=== PATIENT | female | born 2000 | race Caucasian/White ===

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

== ENCOUNTER → 2021-07-23 | Outpatient (REF) | payer OTHER ==
[~2021-07-23] MED LIST changes: +NORE1TAB73
== END ==
LOC: M WUC 11:33
PROVIDERS: ATTEND Physician Assistant
DX: R30.0 Dysuria (principal)

== ENCOUNTER 2021-08-19 17:16 | Emergency (ER) | payer MEDICAID, OTHER ==
[~2021-08-19] VITALS: Ht 152.4 cm; Wt 46.0 kg
[~2021-08-19 17:16] MED LIST changes: -NORE1TAB73
[2021-08-19] MEDS ORDERED: NORE1TAB73 (17:29)
[2021-08-19 18:33] LABS: BASO % 0.4 % (0.0-1.0); EOS % 0.3 % (0.0-3.0); LYMPH # 1.4 10^3/uL (1.5-5.0); LYMPH % 18.9 % (24.0-44.0); MEAN CORPUSCULAR HGB CONC 34.1 g/dl (32.0-36.5); MEAN CORPUSCULAR VOLUME 87.8 fl (80.0-96.0); MONO # 0.5 10^3/uL (0.0-0.8); NEUTROPHILS # 5.6 10^3/uL (1.5-8.5); NEUTROPHILS % 73.1 % (36.0-66.0); PLATELET COUNT, AUTOMATED 209 10^3/uL (150-450); RED BLOOD COUNT 4.67 10^6/uL (4.00-5.40); WHITE BLOOD COUNT 7.6 10^3/uL (4.0-10.0)
[2021-08-19 18:58] LABS: ALBUMIN 3.9 GM/DL (3.2-5.2); ALT/SGPT 65 U/L (12-78); BILIRUBIN,DIRECT 0.1 MG/DL (0.0-0.2); BILIRUBIN,TOTAL 0.1 MG/DL (0.2-1.0); BLOOD UREA NITROGEN 12 MG/DL (7-18); CALCIUM LEVEL 8.9 MG/DL (8.5-10.1); CARBON DIOXIDE LEVEL 27 MEQ/L (21-32); CHLORIDE LEVEL 105 MEQ/L (98-107); CREATININE FOR GFR 0.57 MG/DL (0.55-1.30); GLUCOSE, FASTING 87 MG/DL (70-100); POTASSIUM SERUM 4.3 MEQ/L (3.5-5.1); SODIUM LEVEL 137 MEQ/L (136-145); TOTAL PROTEIN 7.5 GM/DL (6.4-8.2)
[2021-08-19 18:59] LABS: HCG, SERUM QUALITATIVE NEGATIVE (NEGATIVE)
[2021-08-19 22:49] VITALS: BP 124/63
== END 2021-08-19 22:54 | disposition home or self-care (01) ==
LOC: M ED 17:16
DX: N83.201 Unspecified ovarian cyst, right side (principal)

== ENCOUNTER 2022-01-28 16:38 | Emergency (ER) | payer BC, MEDICAID ==
[~2022-01-28] VITALS: Ht 152.4 cm; Wt 48.9 kg
[~2022-01-28 16:38] MED LIST changes: +NORE1TAB73
[2022-01-28] MEDS ORDERED: COLA100C5 PO (16:47)
[2022-01-28] MEDS ORDERED: MOM 30ML SUSPENSION UDC PO ONE (17:50)
[2022-01-28 18:03] LABS: BASO % 0.3 % (0.0-1.0); EOS # 0.1 10^3/uL (0.0-0.5); HEMATOCRIT 38.9 % (36.0-47.0); HEMOGLOBIN 13.4 g/dl (12.0-15.5); LYMPH # 3.6 10^3/uL (1.5-5.0); LYMPH % 28.9 % (24.0-44.0); MEAN CORPUSCULAR HEMOGLOBIN 31.2 pg (27.0-33.0); MEAN CORPUSCULAR HGB CONC 34.4 g/dl (32.0-36.5); MEAN CORPUSCULAR VOLUME 90.5 fl (80.0-96.0); MONO % 7.6 % (2.0-8.0); NEUTROPHILS # 7.8 10^3/uL (1.5-8.5); NEUTROPHILS % 61.9 % (36.0-66.0); PLATELET COUNT, AUTOMATED 313 10^3/uL (150-450); WHITE BLOOD COUNT 12.5 10^3/uL (4.0-10.0)
[2022-01-28 18:32] LABS: BILIRUBIN,DIRECT 0.2 MG/DL (0.0-0.2); BILIRUBIN,TOTAL 0.2 MG/DL (0.2-1.0); TOTAL PROTEIN 7.6 GM/DL (6.4-8.2)
[2022-01-28] MEDS ORDERED: FLEET OIL RETENTION ENEMA PR PRN (18:40)
[2022-01-28] MEDS ORDERED: MILKSUS3 PO (19:37)
[2022-01-28 19:48] VITALS: BP 105/64
== END 2022-01-28 19:56 | disposition home or self-care (01) ==
LOC: M ED 16:38
DX: O99.611 Diseases of the digestive system complicating pregnancy, first trimester (principal); K59.00 Constipation, unspecified; Z3A.09 9 weeks gestation of pregnancy

== ENCOUNTER 2022-04-19 14:41 | Outpatient (CLI) | payer BC ==
[~2022-04-19] VITALS: Ht 152.4 cm; Wt 50.8 kg
[~2022-04-19 14:41] MED LIST changes: +COLA100C5 PO; +MILKSUS3 PO
[2022-04-19] MEDS ORDERED: PRENTAB9 PO (14:58)
[2022-04-19] MEDS ORDERED: ONDA4TAB6 PO (14:58)
[2022-04-19 15:03] VITALS: BP 112/70
[2022-04-19] MEDS ORDERED: HOME MED LIST COMPLETE! XX SCH (15:10)
== END 2022-04-19 15:43 | disposition home or self-care (01) ==
LOC: M LDO 14:41
PROVIDERS: ATTEND Specialist
DX: O26.852 Spotting complicating pregnancy, second trimester (principal); Z3A.22 22 weeks gestation of pregnancy
CPT/HCPCS: 59025; 76815; G0463

== ENCOUNTER → 2022-05-15 | Outpatient (CLI) | payer BC, MEDICAID ==
[~2022-05-15] MED LIST changes: +ONDA4TAB6 PO; +PRENTAB9 PO
== END ==
LOC: M WHC 07:41
PROVIDERS: ATTEND Obstetrics & Gynecology Obstetrics
DX: Z34.82 Encounter for supervision of other normal pregnancy, second trimester (principal); Z3A.23 23 weeks gestation of pregnancy

== ENCOUNTER 2023-02-05 04:23 | Emergency (ER) | payer OTHER, BC ==
[~2023-02-05] VITALS: Ht 152.4 cm; Wt 50.9 kg
[2023-02-05] MEDS ORDERED: HAIL1TAB PO (04:28)
[2023-02-05 08:57] VITALS: BP 116/72; TEMP 98.1; O2SAT 100
== END 2023-02-05 08:58 | disposition home or self-care (01) ==
LOC: M ED 04:23
DX: S63.501A Unspecified sprain of right wrist, initial encounter (principal); X58.XXXA Exposure to other specified factors, initial encounter; Y99.0 Civilian activity done for income or pay; Z88.8 Allergy status to other drugs, medicaments and biological substances

== ENCOUNTER → 2023-03-24 | Outpatient (REF) ==
[~2023-03-24] MED LIST changes: +HAIL1TAB PO
== END ==
LOC: M EMP 10:05
PROVIDERS: ATTEND Family Medicine
DX: Z11.52 Encounter for screening for COVID-19 (principal)

== ENCOUNTER → 2023-04-14 | Outpatient (REF) | payer OTHER, BC | LOC: M LAB REF 16:21 | PROVIDERS: ATTEND Physician Assistant | DX: R30.0 Dysuria (principal) ==

== ENCOUNTER → 2023-04-20 | Outpatient (REF) | LOC: M EMP 11:47 | PROVIDERS: ATTEND Family Medicine | DX: Z11.52 Encounter for screening for COVID-19 (principal) ==

== ENCOUNTER 2023-06-07 05:11 | Emergency (ER) | payer BC, OTHER ==
[2023-06-07] MEDS ORDERED: NS 1,000 ML IV ONE (05:25)
[2023-06-07] MEDS ORDERED: ACETAMINOPHEN *IV* 500 MG in IV 1 EA IV ONE (05:25)
[2023-06-07 05:39] LABS: BASO # 0.1 10^3/uL (0.0-0.2); BASO % 0.5 % (0.0-1.0); EOS # 0.2 10^3/uL (0.0-0.5); EOS % 1.5 % (0.0-3.0); HEMOGLOBIN 12.2 g/dl (12.0-15.5); LYMPH # 4.8 10^3/uL (1.5-5.0); LYMPH % 36.3 % (24.0-44.0); MEAN CORPUSCULAR HGB CONC 34.9 g/dl (32.0-36.5); MEAN CORPUSCULAR VOLUME 89.1 fl (80.0-96.0); MONO # 1.1 10^3/uL (0.0-0.8); MONO % 8.4 % (2.0-8.0); NEUTROPHILS % 52.8 % (36.0-66.0); PLATELET COUNT, AUTOMATED 314 10^3/uL (150-450); RED BLOOD COUNT 3.93 10^6/uL (4.00-5.40); WHITE BLOOD COUNT 13.3 10^3/uL (4.0-10.0)
[2023-06-07 06:07] LABS: ALBUMIN 3.8 G/DL (3.2-5.2); ALKALINE PHOSPHATASE 58 U/L (46-116); ALT/SGPT 14 U/L (7.0-40); AST/SGOT 14 U/L (<34); BILIRUBIN,TOTAL 0.4 MG/DL (0.3-1.2); BLOOD UREA NITROGEN 9 MG/DL (9-23); CALCIUM LEVEL 8.8 MG/DL (8.5-10.1); CARBON DIOXIDE LEVEL 22 MMOL/L (20-31); CHLORIDE LEVEL 104 MMOL/L (98-107); CREATININE FOR GFR 0.43 MG/DL (0.55-1.30); GLOMERULAR FILTRATION RATE > 60.0 (>60); GLUCOSE, FASTING 96 MG/DL (60-100); POTASSIUM SERUM 3.9 MMOL/L (3.5-5.1); SODIUM LEVEL 138 MMOL/L (136-145); TOTAL PROTEIN 7.1 G/DL (5.7-8.2)
[2023-06-07] MEDS ORDERED: CEPH500C PO (08:59)
[2023-06-07] MEDS ORDERED: REGL10TA6 PO (09:26)
[2023-06-07 09:50] VITALS: BP 112/64; TEMP 98.3; O2SAT 99
== END 2023-06-07 09:54 | disposition home or self-care (01) ==
LOC: M ED 05:11
DX: O23.01 Infections of kidney in pregnancy, first trimester (principal); O46.91 Antepartum hemorrhage, unspecified, first trimester; F41.9 Anxiety disorder, unspecified; Z88.1 Allergy status to other antibiotic agents; Z79.891 Long term (current) use of opiate analgesic; Z79.899 Other long term (current) drug therapy
CPT/HCPCS: 76705; 76775; 76801; 80053; 81001; 83735; 85025; 93005; 96361; 96365; 96366; 99284; J0131

== ENCOUNTER 2023-10-02 07:27 | Outpatient (CLI) | payer BC ==
[~2023-10-02] VITALS: Ht 152.4 cm; Wt 56.2 kg
[~2023-10-02 07:27] MED LIST changes: +CEPH500C PO; +REGL10TA6 PO
== END 2023-10-02 10:15 | disposition home or self-care (01) ==
LOC: M LDO 07:27
PROVIDERS: ATTEND Obstetrics & Gynecology
DX: O47.03 False labor before 37 completed weeks of gestation, third trimester (principal); Z3A.28 28 weeks gestation of pregnancy
CPT/HCPCS: 59025; G0463

== ENCOUNTER 2024-01-24 00:12 | Emergency (ER) | payer BC ==
[~2024-01-24] VITALS: Ht 152.4 cm; Wt 55.0 kg
[~2024-01-24 00:12] MED LIST changes: +ONDA-282 PO; -ONDA4TAB6 PO
[2024-01-24 00:13] VITALS: BP 91/55; TEMP 96.5; O2SAT 98
[2024-01-24] MEDS: NS 1,000 ML IV ONE (00:55)
[2024-01-24] MEDS ORDERED: ONDANSETRON 4MG 2ML VIAL As Ordered ONE (00:59)
[2024-01-24] MEDS: ONDANSETRON 4MG 2ML VIAL IV ONE (01:00)
[2024-01-24 01:05] LABS: VENOUS BASE EXCESS -6.1 (-2.0-2.0); VENOUS O2 SATURATION 97.2 % (60.0-80.0); VENOUS PARTIAL PRESSURE CO2 27.5 mmHg (38.0-50.0); VENOUS PARTIAL PRESSURE O2 98.1 mmHg (30.0-50.0); VENOUS PH 7.409 UNITS (7.330-7.430); VENOUS STANDARD HCO3 19.5 MMOL/L; VENOUS TOTAL CO2 17.8 MMOL/L (24.0-28.0)
[2024-01-24] MEDS: KETOROLAC 30 MG/ML 1ML VIAL IV ONE (01:10)
[2024-01-24 01:14] LABS: BASO # 0.1 10^3/uL (0.0-0.2); BASO % 0.7 % (0.0-1.0); EOS # 0.2 10^3/uL (0.0-0.5); EOS % 1.6 % (0.0-3.0); HEMATOCRIT 38.3 % (36.0-47.0); HEMOGLOBIN 12.5 g/dl (12.0-15.5); LYMPH # 7.4 10^3/uL (1.5-5.0); LYMPH % 52.4 % (24.0-44.0); MEAN CORPUSCULAR HGB CONC 32.6 g/dl (32.0-36.5); MEAN CORPUSCULAR VOLUME 85.9 fl (80.0-96.0); MONO # 0.9 10^3/uL (0.0-0.8); MONO % 6.1 % (2.0-8.0); NEUTROPHILS # 5.6 10^3/uL (1.5-8.5); PLATELET COUNT, AUTOMATED 355 10^3/uL (150-450); RED BLOOD COUNT 4.46 10^6/uL (4.00-5.40); WHITE BLOOD COUNT 14.2 10^3/uL (4.0-10.0)
[2024-01-24 01:35] LABS: ETHYL ALCOHOL (ETHANOL) 0.158 % (0.000-0.010)
[2024-01-24 01:36] LABS: SALICYLATE LEVEL < 3.0 MG/DL (<30)
[2024-01-24 01:37] LABS: ALBUMIN 4.2 G/DL (3.2-5.2); ALKALINE PHOSPHATASE 96 U/L (46-116); ALT/SGPT 27 U/L (7.0-40); AST/SGOT 27 U/L (<34); BILIRUBIN,DIRECT < 0.1 MG/DL (<0.4); BILIRUBIN,TOTAL 0.3 MG/DL (0.3-1.2); BLOOD UREA NITROGEN 8 MG/DL (9-23); CALCIUM LEVEL 9.9 MG/DL (8.5-10.1); CARBON DIOXIDE LEVEL 17 MMOL/L (20-31); CHLORIDE LEVEL 106 MMOL/L (98-107); CREATININE FOR GFR 0.58 MG/DL (0.55-1.30); GLOMERULAR FILTRATION RATE > 60.0 (>60); GLUCOSE, FASTING 139 MG/DL (60-100); POTASSIUM SERUM 3.2 MMOL/L (3.5-5.1); SODIUM LEVEL 138 MMOL/L (136-145); TOTAL PROTEIN 6.8 G/DL (5.7-8.2)
[2024-01-24 01:39] LABS: THYROID STIMULATING HORMONE 2.701 uIU/ML (0.55-4.78)
[2024-01-24 01:40] LABS: CPK CREATINE PHOSPHOKINASE 89 U/L (34-145)
[2024-01-24 01:46] LABS: HCG, SERUM QUALITATIVE NEGATIVE (NEGATIVE)
== END 2024-01-24 04:30 | disposition home or self-care (01) ==
LOC: M ED 00:12
DX: F10.129 Alcohol abuse with intoxication, unspecified (principal); Z88.8 Allergy status to other drugs, medicaments and biological substances
CPT/HCPCS: 80048; 80076; 80143; 82077; 82550; 82803; 84443; 84703; 85025; 93005; 93041; 94760; 96361; 96374; 96375; 99284; J1885; J2405

== ENCOUNTER 2024-04-12 23:55 | Emergency (ER) | payer BC ==
[~2024-04-12] VITALS: Ht 152.4 cm; Wt 52.0 kg
[2024-04-13] MEDS: NS 1,000 ML IV ONE (00:42)
[2024-04-13 00:46] LABS: BASO % 0.2 % (0.0-1.0); EOS # 0.3 10^3/uL (0.0-0.5); EOS % 6.2 % (0.0-3.0); HEMATOCRIT 38.4 % (36.0-47.0); LYMPH # 0.5 10^3/uL (1.5-5.0); LYMPH % 11.4 % (24.0-44.0); MEAN CORPUSCULAR HEMOGLOBIN 28.6 pg (27.0-33.0); MEAN CORPUSCULAR HGB CONC 33.9 g/dl (32.0-36.5); MEAN CORPUSCULAR VOLUME 84.6 fl (80.0-96.0); MONO # 0.4 10^3/uL (0.0-0.8); MONO % 8.7 % (2.0-8.0); NEUTROPHILS # 3.2 10^3/uL (1.5-8.5); NEUTROPHILS % 73.3 % (36.0-66.0); PLATELET COUNT, AUTOMATED 176 10^3/uL (150-450); RED BLOOD COUNT 4.54 10^6/uL (4.00-5.40); WHITE BLOOD COUNT 4.4 10^3/uL (4.0-10.0)
[2024-04-13 00:54] LABS: APPEARANCE, URINE CLOUDY (CLEAR); BACTERIA, URINE AUTO 1+ (NEGATIVE); BILIRUBIN, URINE AUTO NEGATIVE (NEGATIVE); BLOOD, URINE BLOOD 3+ (NEGATIVE); COLOR, URINE YELLOW (YELLOW); GLUCOSE, URINE (UA) AUTO NEGATIVE (NEGATIVE); KETONE, URINE AUTO 2+ mg/dL (NEGATIVE); LEUKOCYTE ESTERASE, URINE AUTO 2+ (NEGATIVE); MUCUS, URINE SMALL (NEGATIVE); NITRITE, URINE AUTO NEGATIVE (NEGATIVE); PROTEIN, URINE AUTO 1+ mg/dL (NEGATIVE); RBC, URINE AUTO 9 /HPF (0-3); SQUAMOUS EPITHELIAL CELL UR AU 20 /HPF (0-6); WBC, URINE AUTO 25 /HPF (0-3)
[2024-04-13 01:14] LABS: ALBUMIN 4.3 G/DL (3.2-5.2); ALKALINE PHOSPHATASE 87 U/L (46-116); ALT/SGPT 19 U/L (7.0-40); AST/SGOT 18 U/L (<34); BILIRUBIN,TOTAL 0.3 MG/DL (0.3-1.2); BLOOD UREA NITROGEN 11 MG/DL (9-23); CALCIUM LEVEL 9.1 MG/DL (8.5-10.1); CARBON DIOXIDE LEVEL 22 MMOL/L (20-31); CHLORIDE LEVEL 104 MMOL/L (98-107); CREATININE FOR GFR 0.61 MG/DL (0.55-1.30); GLOMERULAR FILTRATION RATE > 60.0 (>60); GLUCOSE, FASTING 91 MG/DL (60-100); POTASSIUM SERUM 3.5 MMOL/L (3.5-5.1); SODIUM LEVEL 135 MMOL/L (136-145); TOTAL PROTEIN 7.6 G/DL (5.7-8.2)
[2024-04-13 01:17] LABS: INR 1.13; PARTIAL THROMBOPLASTIN TIME 34.4 SECONDS (24.8-34.2); PROTHROMBIN TIME 14.2 SECONDS (12.5-14.5)
[2024-04-13 01:29] LABS: HCG, SERUM QUANTITATIVE 11980.8 MIU/ML (<4.2)
[2024-04-13 03:00] VITALS: TEMP 99
[2024-04-13 03:30] VITALS: BP 111/63; O2SAT 98
[2024-04-13] MEDS: CEPHALEXIN 500 MG CAP PO ONE (03:59)
[2024-04-13] MEDS ORDERED: CEPH500C PO (04:00)
== END 2024-04-13 04:18 | disposition home or self-care (01) ==
LOC: M ED 23:55
DX: O02.0 Blighted ovum and nonhydatidiform mole (principal); Z87.440 Personal history of urinary (tract) infections; Z88.8 Allergy status to other drugs, medicaments and biological substances

== ENCOUNTER → 2024-05-13 | Outpatient (CLI) | payer BC | LOC: M PLALAB 14:20 | PROVIDERS: ATTEND Obstetrics & Gynecology | DX: O02.1 Missed abortion (principal) ==

== ENCOUNTER → 2024-05-13 | Outpatient (CLI) | payer BC | LOC: M WHC 15:26 | PROVIDERS: ATTEND Obstetrics & Gynecology | DX: O02.1 Missed abortion (principal) ==

== ENCOUNTER → 2024-05-13 | Outpatient (CLI) | payer BC | LOC: M WHC 15:13 | PROVIDERS: ATTEND Obstetrics & Gynecology | DX: Z53.9 Procedure and treatment not carried out, unspecified reason (principal) ==

== ENCOUNTER 2024-08-26 15:39 | Emergency (ER) | payer BC ==
[~2024-08-26] VITALS: Ht 152.4 cm; Wt 46.8 kg
[2024-08-26] MEDS ORDERED: ONDANSETRON 4MG 2ML VIAL As Ordered ONE (16:26)
[2024-08-26] MEDS: ONDANSETRON 4MG 2ML VIAL IV ONE ×2 (16:29→22:00)
[2024-08-26] MEDS: ACETAMINOPHEN *IV* 1,000 MG in IV 1 EA IV ONE (16:31)
[2024-08-26 16:37] LABS: BASO % 0.3 % (0.0-1.0); EOS % 0.2 % (0.0-3.0); HEMATOCRIT 32.8 % (36.0-47.0); HEMOGLOBIN 11.1 g/dl (12.0-15.5); LYMPH % 10.3 % (24.0-44.0); MEAN CORPUSCULAR HEMOGLOBIN 29.1 pg (27.0-33.0); MEAN CORPUSCULAR HGB CONC 33.8 g/dl (32.0-36.5); MEAN CORPUSCULAR VOLUME 86.1 fl (80.0-96.0); MONO % 10.3 % (2.0-8.0); NEUTROPHILS # 7.9 10^3/uL (1.5-8.5); NEUTROPHILS % 78.6 % (36.0-66.0); PLATELET COUNT, AUTOMATED 177 10^3/uL (150-450); RED BLOOD COUNT 3.81 10^6/uL (4.00-5.40); WHITE BLOOD COUNT 10.1 10^3/uL (4.0-10.0)
[2024-08-26 16:41] LABS: VENOUS BASE EXCESS -1.7 (-2.0-2.0); VENOUS HCO3 23.4 MMOL/L (23.0-27.0); VENOUS O2 SATURATION 87.8 % (60.0-80.0); VENOUS PARTIAL PRESSURE CO2 41.1 mmHg (38.0-50.0); VENOUS PH 7.374 UNITS (7.330-7.430); VENOUS STANDARD HCO3 22.9 MMOL/L; VENOUS TOTAL CO2 24.7 MMOL/L (24.0-28.0)
[2024-08-26 17:03] LABS: ALBUMIN 3.9 G/DL (3.2-5.2); ALKALINE PHOSPHATASE 65 U/L (35-104); ALT/SGPT 19 U/L (7.0-40); AST/SGOT 14 U/L (<34); BILIRUBIN,DIRECT 0.1 MG/DL (<0.4); BILIRUBIN,TOTAL 0.3 MG/DL (0.3-1.2); BLOOD UREA NITROGEN 11 MG/DL (9-23); CARBON DIOXIDE LEVEL 23 MMOL/L (20-31); CHLORIDE LEVEL 103 MMOL/L (98-107); CREATININE FOR GFR 0.59 MG/DL (0.55-1.30); GLOMERULAR FILTRATION RATE > 60.0 (>60); GLUCOSE, FASTING 86 MG/DL (60-100); POTASSIUM SERUM 3.8 MMOL/L (3.5-5.1); SODIUM LEVEL 136 MMOL/L (136-145); TOTAL PROTEIN 7.3 G/DL (5.7-8.2)
[2024-08-26 17:10] LABS: THYROXINE (T4) 5.4 UG/DL (4.5-10.9)
[2024-08-26] MEDS: IPRATROPIUM 0.5MG/ALBUTEROL 2.5MG INH SOL UD 3ML (DUONEB) NEB SCH (17:10)
[2024-08-26 17:11] LABS: THYROID STIMULATING HORMONE 0.971 uIU/ML (0.55-4.78)
[2024-08-26] MEDS: NS (Normal Saline) 0.9% 1,000 ML IV ONE (17:11)
[2024-08-26] MEDS: KETOROLAC 30 MG/ML 1ML VIAL IV ONE ×2 (17:14→22:05)
[2024-08-26] MEDS: dexAMETHasone 20MG/5ML VIAL IV ONE (17:21)
[2024-08-26 19:57] VITALS: O2SAT 98
[2024-08-26] MEDS ORDERED: ISOVUE-370 76% 100ML VIAL As Ordered ONE (19:59)
[2024-08-26] MEDS ORDERED: VENTAER INH (22:01)
[2024-08-26] MEDS: ACETAMINOPHEN 325 MG TAB PO ONE (22:11)
[2024-08-26] MEDS ORDERED: ONDA-282 PO (22:19)
[2024-08-26 23:08] VITALS: BP 99/58; TEMP 97.9; O2SAT 98
== END 2024-08-26 23:13 | disposition home or self-care (01) ==
LOC: M ED 15:39
DX: J20.8 Acute bronchitis due to other specified organisms (principal); B97.29 Other coronavirus as the cause of diseases classified elsewhere; J45.909 Unspecified asthma, uncomplicated; Z87.01 Personal history of pneumonia (recurrent); K21.9 Gastro-esophageal reflux disease without esophagitis; I95.9 Hypotension, unspecified; Z88.8 Allergy status to other drugs, medicaments and biological substances
CPT/HCPCS: 71046; 71275; 80048; 80076; 82803; 83605; 84436; 84443; 84702; 85025; 87040; 87486; 87581; 87633; 87798; 93005; 93041; 94640; 94760; 96374; 96375; 96376; 99285; J0131; J1100; J1885; J2405; Q9967

== ENCOUNTER → 2025-04-19 | Outpatient (CLI) | payer BC, OTHER ==
[~2025-04-19] MED LIST changes: +VENTAER INH
[2025-04-19 15:49] LABS: PLATELET COUNT, AUTOMATED 301 10^3/uL (150-450)
[2025-04-19 16:27] LABS: HIV 1&2 SCREEN NEGATIVE (NEGATIVE)
[2025-04-19 16:35] LABS: HEPATITIS C VIRUS ABY INDEX < 0.02 INDEX (<0.8)
[2025-04-19 16:51] LABS: Trichomonas vaginalis (AMP) NOT DETECTED (NEGATIVE)
[2025-04-19 17:14] LABS: GC DNA AMPLIFICATION NEGATIVE (NEGATIVE)
== END ==
LOC: M PLALAB 11:06
PROVIDERS: ATTEND Nurse Practitioner Family
DX: Z34.82 Encounter for supervision of other normal pregnancy, second trimester (principal)

== ENCOUNTER → 2025-06-12 | Outpatient (CLI) | payer BC | LOC: M WHC 10:06 | PROVIDERS: ATTEND Nurse Practitioner Family | DX: Z34.82 Encounter for supervision of other normal pregnancy, second trimester (principal) ==

== ENCOUNTER → 2025-06-30 | Outpatient (CLI) | payer BC | LOC: M WHC 12:12 | PROVIDERS: ATTEND Advanced Practice Midwife | DX: Z34.80 Encounter for supervision of other normal pregnancy, unspecified trimester (principal); Z36.2 Encounter for other antenatal screening follow-up ==

== ENCOUNTER → 2025-07-19 | Outpatient (CLI) | payer BC ==
[2025-07-19 08:46] LABS: PLATELET COUNT, AUTOMATED 309 10^3/uL (150-450)
[2025-07-19 09:06] LABS: GLUCOSE CHALLENGE TEST 1 HOUR 61 MG/DL (LESS THAN 140)
[2025-07-19 09:10] LABS: Trichomonas vaginalis (AMP) NOT DETECTED (NEGATIVE)
[2025-07-19 09:33] LABS: GC DNA AMPLIFICATION NEGATIVE (NEGATIVE)
[2025-07-19 09:37] LABS: HIV 1&2 SCREEN NEGATIVE (NEGATIVE)
[2025-07-19 09:45] LABS: HEPATITIS C VIRUS ABY INDEX < 0.02 INDEX (<0.8)
== END ==
LOC: M LAB 06:56
PROVIDERS: ATTEND Advanced Practice Midwife
DX: Z34.80 Encounter for supervision of other normal pregnancy, unspecified trimester (principal)